=== PATIENT | female | born 1970 | race Asian ===

== ENCOUNTER 2017-07-29 01:39 | Emergency (ER) | payer OTHER ==
[2017-07-29 02:21] LABS: ABS Basophils 0.1 10^3/ul (0-0.2); ABS Eosinophils 0.2 10^3/ul (0-0.6); ABS Monocytes 0.6 10^3/ul (0-0.8); ABS Neutrophils 2.2 10^3/ul (1.5-7.7); ABS Nucleated RBC 0 10^3/ul; Eosinophil % 4.7 % (0-6); Hematocrit 41 % (35-47); Hemoglobin 13.4 g/dl (12.0-16.0); Lymphocyte % 38.8 % (25-47); Mean Corpuscular HGB Conc 33 g/dl (31-36); Mean Corpuscular Hemoglobin 30 pg (27-31); Mean Corpuscular Volume 89 fL (80-97); Mean Platelet Volume 7.6 um3 (7.4-10.4); Nucleated Red Blood Cells % 0.1; Platelet Count 257 10^3/ul (150-450); Red Blood Count 4.54 10^6/ul (4.0-5.4); Red Cell Distribution Width 14 % (10.5-15); White Blood Count 5.2 10^3/ul (3.5-10.8)
[2017-07-29 02:37] LABS: EGFR Non-African American 109.3 (>60)
[2017-07-29] MEDS ORDERED: NS 0.9% 1000 ML* 2,000 ML IV ONE (03:08)
[2017-07-29] MEDS ORDERED: Metoclopramide IV* 5 MG/ML 2 ML VIAL IV ONE (03:09)
[2017-07-29 05:33] VITALS: BP 131/74
--- NOTE | 2017-07-29 19:47 | ED ---
[facility], scribed for Silas Vizcarra MD on 07/29/17 at 0308 . GI/ HPI - HPI Summary HPI Summary: Pt is a 47 y/o F who presents to ED c/o diarrhea. Diarrhea began 2 days ago after eating yogurt that she suspects was spoiled. Additionally c/o mild head pain, fatigue and dizziness. Denies abd pain, N/V, and blood in stool. No prior similar episodes. No recent sick contact. - History of Current Complaint Chief Complaint: EDAbdPain Time Seen by Provider: 07/29/17 02:45 Stated Complaint: DIARRHEA Hx Obtained From: Patient Onset/Duration: Started Days Ago - 2 days, Still Present Current Severity: None Pain Intensity: 0 Associated Signs and Symptoms: Positive: Diarrhea. Negative: Nausea, Vomiting, Blood w/Stool Aggravating Factor(s): Nothing Alleviating Factor(s): Nothing - Allergy/Home Medications Allergies/Adverse Reactions: Allergies Allergy/AdvReac Type Severity Reaction Status Date / Time hydrochlorothiazide Allergy Rash Verified 07/29/17 01:51 [From Dyazide] levothyroxine Allergy GI Upset Verified 07/29/17 01:52 meloxicam Allergy Swelling Verified 07/29/17 01:51 naproxen Allergy Headache Verified 07/29/17 01:52 simvastatin Allergy Unknown Verified 07/29/17 01:52 Reaction Details triamterene [From Dyazide] Allergy Rash Verified 07/29/17 01:51 Home Medications: Home Medications Levothyroxine Sodium 75 mg PO DAILY 07/29/17 [History Confirmed 07/29/17] PMH/Surg Hx/FS Hx/Imm Hx Endocrine/Hematology History: Reports: Hx Thyroid Disease GI History: Reports: Hx Gastroesophageal Reflux Disease Infectious Disease History: No Infectious Disease History: Denies: Traveled Outside the [place] in Last 30 Days - Family History Known Family History: Negative: Cardiac Disease - Social History Occupation: Employed Full-time Lives: With Family Alcohol Use: Rare Substance Use Type: Reports: None Smoking Status (MU): Never Smoked Tobacco Review of Systems Positive: Fatigue Positive: Diarrhea. Negative: Abdominal Pain, Vomiting, Nausea Positive: other - NEGATIVE: Blood in stool Neurological: Other - Dizziness Positive: Headache All Other Systems Reviewed And Are Negative: Yes Physical Exam - Summary Physical Exam Summary: GENERAL: ~Patient is a well developed and nourished F who is lying comfortable in the stretcher. ~Patient is not in any acute respiratory distress. HEAD AND FACE: Normocephalic EYES: PERRLA, EOMI x 2. EARS: Hearing grossly intact. MOUTH: Oropharynx within normal limits. NECK: Supple, trachea is midline, no adenopathy, no JVD, no carotid bruit. CHEST: Symmetric, no tenderness at palpation LUNGS: Clear to auscultation bilaterally. No wheezing or crackles. CVS: Regular rate and rhythm, S1 and S2 present, no murmurs or gallops appreciated. ABDOMEN: Soft, non-tender. Bowel sounds are normal. No abdominal abnormal pulsations. EXTREMITIES: Full ROM in all major joints, no edema, no cyanosis or clubbing. NEURO: Alert and oriented x 3. No acute neurological deficits. Speech is normal and follows commands. SKIN: Dry and warm Triage Information Reviewed: Yes Vital Signs On Initial Exam: Initial Vitals Temp Pulse Resp BP Pulse Ox 97.2 F 59 16 155/97 99 07/29/17 01:45 07/29/17 01:45 07/29/17 01:45 07/29/17 01:45 07/29/17 01:45 Vital Signs Reviewed: Yes Diagnostics - Vital Signs Vital Signs Temp Pulse Resp BP Pulse Ox 07/29/17 01:45 97.2 F 59 16 155/97 99 - Laboratory Lab Results: Lab Results 07/29/17 07/29/17 07/29/17 Range/Units 02:06 02:06 02:06 WBC 5.2 (3.5-10.8) 10^3/ul RBC 4.54 (4.0-5.4) 10^6/ul Hgb 13.4 (12.0-16.0) g/dl Hct 41 (35-47) % MCV 89 (80-97) fL MCH 30 (27-31) pg MCHC 33 (31-36) g/dl RDW 14 (10.5-15) % Plt Count 257 (150-450) 10^3/ul MPV 7.6 (7.4-10.4) um3 Neut % (Auto) 43.1 (38-83) % Lymph % (Auto) 38.8 (25-47) % Hamlin % (Auto) 12.1 H (0-7) % Eos % (Auto) 4.7 (0-6) % Baso % (Auto) 1.3 (0-2) % Absolute Neuts (auto) 2.2 (1.5-7.7) 10^3/ul Absolute Lymphs (auto) 2.0 (1.0-4.8) 10^3/ul Absolute Monos (auto) 0.6 (0-0.8) 10^3/ul Absolute Eos (auto) 0.2 (0-0.6) 10^3/ul Absolute Basos (auto) 0.1 (0-0.2) 10^3/ul Absolute Nucleated RBC 0 10^3/ul Nucleated RBC % 0.1 Sodium 140 (139-145) mmol/L Potassium 3.6 (3.5-5.0) mmol/L Chloride 107 (101-111) mmol/L Carbon Dioxide 27 (22-32) mmol/L Anion Gap 6 (2-11) mmol/L BUN 10 (6-24) mg/dL Creatinine 0.59 (0.51-0.95) mg/dL Est GFR ( Amer) 140.5 (>60) Est GFR (Non-Af Amer) 109.3 (>60) BUN/Creatinine Ratio 16.9 (8-20) Glucose 91 (70-100) mg/dL Lactic Acid 0.3 L (0.5-2.0) mmol/L Calcium 9.0 (8.6-10.3) mg/dL Total Bilirubin 0.30 (0.2-1.0) mg/dL AST 18 (13-39) U/L ALT 14 (7-52) U/L Alkaline Phosphatase 67 (34-104) U/L C-Reactive Protein 14.71 H (< 5.00) mg/L Total Protein 7.5 (6.4-8.9) g/dL Albumin 3.9 (3.2-5.2) g/dL Globulin 3.6 (2-4) g/dL Albumin/Globulin Ratio 1.1 (1-3) Lipase 20 (11.0-82.0) U/L Result Diagrams: 07/29/17 02:06 07/29/17 02:06 Lab Statement: Any lab studies that have been ordered have been reviewed, and results considered in the medical decision making process. - EKG 0338 Cardiac Rate: NL - 66 bpm EKG Rhythm: Sinus Rhythm EKG Interpretation: Normal and no ischemic changes GIGU Course/Dx - Course Assessment/Plan: 47 y/o F presents with diarrhea for past 2 days then today she started developing lightheadedness. Her labs are unremarkable and she was given 1 L of IV fluid and Reglan and repotrs feeling better and is no longer lightheaded. Patient is hemodynamically stable and safe for discharge with strict precautions and otherwise follow up with her PCP. - Diagnoses Provider Diagnoses: Diarrhea Discharge - Sign-Out/Discharge Documenting (check all that apply): Discharge/Admit/Transfer - Discharge - Discharge Plan Condition: Stable Disposition: HOME Patient Education Materials: Acute Diarrhea (ED) Forms: *Work Release Referrals: Johnnie Blas MD [Primary Care Provider] - 3 Days Additional Instructions: Return to ED for any new or worsening symptoms. The documentation as recorded by the [facility] accurately reflects the service I personally performed and the decisions made by , Silas Vizcarra MD.
== END 2017-07-29 05:33 | disposition home or self-care (01) ==
LOC: ED 01:39
DX: R19.7 Diarrhea, unspecified (principal); R51 Headache; R53.83 Other fatigue; R42 Dizziness and giddiness; E07.9 Disorder of thyroid, unspecified; K21.9 Gastro-esophageal reflux disease without esophagitis; Z88.8 Allergy status to other drugs, medicaments and biological substances; Z88.6 Allergy status to analgesic agent
CPT/HCPCS: 36415; 80053; 83605; 83690; 84484; 85025; 86140; 93005; 96374; 99283; J2765

== ENCOUNTER 2022-03-12 07:36 | Observation (INO) ==
[~2022-03-12 07:36] MED LIST: Buffered Lidocaine 1% SYRIN 1 ml INTRADERM ONE; HYDROcodone/ACETAMIN 5/325 mg TAB PO PRN; Lactated Ringers 1000 ml BAG 1,000 ML IV SCH; Metoclopramide 5 MG/ML VIAL (10 mg) IV PRN; Naloxone 0.4 mg VIAL 0.4 mg/ml 1 ml VIAL IV PRN; Ondansetron 4 mg VIAL 2 MG/ML 2 ml VIAL IV PRN; ROPIVACAINE 5 MG/ML 30 ML BTL (0.5%) ONE
[2022-03-12] MEDS ORDERED: ceFAZolin 2 GM PREMIX 2 GM/50 ML BAG ONE (08:39)
[2022-03-12] MEDS ORDERED: fentaNYL 100 mcg/2 ml 50 MCG/ML VIAL ONE ×3 (10:05→14:16)
[2022-03-12] MEDS ORDERED: ROPIVACAINE 5 MG/ML 30 ML BTL (0.5%) ONE (10:06)
[2022-03-12] MEDS ORDERED: Midazolam 2 mg/2 ml VIAL 1 mg/ml 2 ml VIAL (2 mg) ONE ×2 (10:06→10:34)
[2022-03-12] MEDS ORDERED: Dexamethasone IV 4 MG/ML VIAL 1 ml VIAL ONE ×2 (10:06→10:35)
[2022-03-12] MEDS ORDERED: Propofol 0 MG/0 ML BTL ONE (10:35)
[2022-03-12] MEDS ORDERED: Ondansetron 4 mg VIAL 2 MG/ML 2 ml VIAL ONE (10:35)
[2022-03-12] MEDS ORDERED: Lidocaine 2% PF 5 ML VIAL ONE (10:45)
[2022-03-12] MEDS ORDERED: Ketamine HCL 50 mg/ml 10 ml VIAL (500 MG) ONE (10:45)
[2022-03-12] MEDS ORDERED: Propofol 10 MG/ML 20 ML BTL ONE (10:45)
[2022-03-12] MEDS ORDERED: HYDROmorphone 0.5 MG/0.5 ML SYRINGE ONE (13:45)
[2022-03-12] MEDS ORDERED: Lactulose 30 ml UDC PO PRN (13:57)
[2022-03-12] MEDS ORDERED: Ondansetron 4 mg VIAL 2 MG/ML 2 ml VIAL IV PRN (13:57)
[2022-03-12] MEDS ORDERED: Magnesium Hydroxide LIQ 30 ML UDC PO PRN (13:57)
[2022-03-12] MEDS ORDERED: Ondansetron ODT 4 mg TAB 4 MG TAB PO PRN (13:57)
[2022-03-12] MEDS ORDERED: Morphine 2 MG/ML SYRINGE IV PRN (13:57)
[2022-03-12] MEDS ORDERED: HYDROcodone/ACETAMIN 5/325 mg TAB ONE (14:16)
[2022-03-12] MEDS: fentaNYL 100 mcg/2 ml 50 MCG/ML VIAL IV PRN ×2 (14:19→14:27)
[2022-03-12] MEDS: Lactated Ringers 1000 ml BAG 1,000 ML IV SCH (15:55)
[2022-03-12] MEDS: ceFAZolin 1 GM ADVAN 1 GM in NS 0.9% 50 ML 50 ML IVPB SCH (20:41)
[2022-03-12] MEDS: Magnesium Hydroxide LIQ 30 ML UDC PO SCH (20:43)
[2022-03-13] MEDS: Lactated Ringers 1000 ml BAG 1,000 ML IV SCH (02:59)
[2022-03-13] MEDS: ceFAZolin 1 GM ADVAN 1 GM in NS 0.9% 50 ML 50 ML IVPB SCH ×2 (04:16→11:02)
[2022-03-13 06:45] LABS: Hematocrit 32 % (35-47); Hemoglobin 10.6 g/dL (12.0-16.0); Mean Platelet Volume 8.1 fL (7.4-10.4); Platelet Count 212 10^3/uL (150-450)
[2022-03-13 07:15] LABS: Calcium 8.4 mg/dL (8.6-10.3); Potassium 3.9 mmol/L (3.5-5.0); eGFR CKD-EPI 107.5 (>60)
[2022-03-13] MEDS: Magnesium Hydroxide LIQ 30 ML UDC PO SCH (08:30)
[2022-03-13] MEDS ORDERED: Vitamin THERAPEUTIC TAB PO SCH (09:00)
[2022-03-13] MEDS ORDERED: Multivitamins/Minerals TAB PO SCH (09:00)
[2022-03-13 14:10] VITALS: BP 118/71
== END 2022-03-13 15:30 | disposition home or self-care (01) ==
LOC: SSU 07:36 → OR 07:36
PROVIDERS: ADMIT Orthopaedic Surgery Adult Reconstructive Orthopaedic Surgery; ATTEND Orthopaedic Surgery Adult Reconstructive Orthopaedic Surgery